=== PATIENT | male | born 1995 | race Caucasian/White ===

== ENCOUNTER 2017-01-31 20:21 | Inpatient (IN) | payer OTHER, BC ==
[~2017-01-31] VITALS: Ht 185.4 cm; Wt 101.6 kg
--- NOTE | ~2017-01-31 | HP ---
PATIENT'S NAME: SEEMA KERNS [facility] AGE: 21 Y [address] ROOM: [place] [address] LOCATION: [facility] ADMIT DATE: 01/31/2017 History & Physical DISCHARGE DATE: FAMILY PHYSICIAN: PHYSICIAN, UNKNOWN ATTENDING PHYSICIAN: Odilon Merlos DATE OF SERVICE: CHIEF COMPLAINT: Grade 3 splenic laceration and left rib fractures following a fall. HISTORY OF PRESENT ILLNESS: Mr. Kerns is a 21-year-old male, who fell Friday morning about 10 feet. He had been on a trailer and landed on his left posterior chest. He had an immediate onset of some discomfort, but had been getting along okay. This morning, he noticed increasing pain as well as some lightheadedness and generally feeling worse. He went in to be evaluated. He was found to be quite tender in his abdomen. Chest x-ray showed a small left pleural effusion. He had a minimally elevated white count, but a normal hemoglobin. Vital signs looked okay. A CT scan of the abdomen was done, which showed a grade 3 splenic laceration to the hilum. There was just a mild amount of blood in the pelvis. No extravasation of contrast or evidence of active bleeding. On arrival to [facility], the patient is awake and alert. He complains of pain with deep inspiration as well as some generalized abdominal pain. He denies nausea or vomiting. He denies fevers or chills. PAST MEDICAL HISTORY: Really unremarkable. He has no chronic health issues. MEDICATIONS: He takes no medications on a regular basis. ALLERGIES: HE HAS NO KNOWN ALLERGIES. PAST SURGICAL HISTORY: His only previous surgery is myringotomy tubes as a child. SOCIAL HISTORY: The patient is not . He does smoke about a pack per day. FAMILY HISTORY: Noncontributory. REVIEW OF SYSTEMS: PATIENT'S NAME: SEEMA KERNS [facility] AGE: 21 Y [address] ROOM: [address] [address] LOCATION: [facility] ADMIT DATE: 01/31/2017 History & Physical DISCHARGE DATE: FAMILY PHYSICIAN: PHYSICIAN, UNKNOWN ATTENDING PHYSICIAN: Odilon Merlos Documented on the nursing assessment and has been reviewed. PHYSICAL EXAMINATION: GENERAL: The patient is a healthy, well-nourished, young man. He is alert and oriented. His Jyothi Coma Scale is 15. He does not appear to be in any major distress or discomfort. VITAL SIGNS: He is afebrile. Blood pressure 127/83, pulse 94, respirations 12, and saturations are 93% on room air. HEENT: Normocephalic and atraumatic. Pupils are equal. There is no scleral icterus. External ears, nose, and eyelids are unremarkable. There is no obvious facial or skull trauma. No hematomas, bruising, or hematomas of any kind. Oropharynx is clear. NECK: The trachea is midline. There are no masses or adenopathy. Breathing is nonlabored. LUNGS: Clear to auscultation bilaterally, but there is some definite diminishment in the left base. There is no crepitus. There is some tenderness over the left posterior chest wall. HEART: Regular rate and rhythm. ABDOMEN: Soft. It is not visibly distended. He does have bowel sounds. He has some moderate left upper quadrant tenderness and mild diffuse tenderness. There is no bruising to the abdominal wall. PELVIS: Stable. EXTREMITIES: No peripheral edema. No cyanosis or clubbing. No obvious deformities. He moves all 4 extremities well. ASSESSMENT: This is a 21-year-old male, who is 2-1/2 days out from a 10 feet fall, suffering a left rib fracture and a grade 3 splenic laceration. Right now, he seems quite stable, but with his clinical deterioration earlier today, I think it would be best to admit him and monitor his hemoglobins for a couple of days to make sure they are stable. He is far enough out that I think I will go ahead and let him have a diet and move around a little bit. Certainly, if we see decreasing hemoglobin or unstable vital signs, we may have to consider splenectomy. MD LEAH DIAZ/misael /[id number] PATIENT'S NAME: SEEMA KERNS Fel[facility] AGE: 21 Y [address] ROOM: [address] [address] LOCATION: [facility] ADMIT DATE: 01/31/2017 History & Physical DISCHARGE DATE: FAMILY PHYSICIAN: PHYSICIAN, UNKNOWN ATTENDING PHYSICIAN: Odilon Merlos CC: Titi Rajan MD D: [id number] T: [id number] HISTORY & PHYSICAL
--- NOTE | ~2017-01-31 | DS ---
PATIENT'S NAME: SEEMA KERNS [facility] AGE: 21 Y [address] ROOM: [address] [address] LOCATION: [facility] ADMIT DATE: 01/31/2017 Discharge Summary DISCHARGE DATE: 02/03/2017 FAMILY PHYSICIAN: Titi Rajan MD ATTENDING PHYSICIAN: Odilon Merlos DIAGNOSES: 1. A 21-year-old male who fell off a trailer, falling approximately 10 feet. 2. Grade 3 splenic laceration, with laceration primarily involving mid to lower spleen extending to the hilum with no active extravasation. Multiple left rib fractures including 9 and 10. SUMMARY: Seema is a 21-year-old male who fell on January 29, 2017, falling approximately 10 feet off the trailer landing on his left posterior chest. The patient had an immediate onset of some discomfort, but had been getting along okay. On the morning of January 31, he had noticed increasing pain as well as some lightheadedness and generally feeling worse. He presented for evaluation. The patient was found to be quite tender in his abdomen. Chest x- ray showed a small left pleural effusions. His hemoglobin was normal. A CT scan of the abdomen was done, which showed a grade 3 splenic laceration extending to the hilum. There was mild amount of blood in the pelvis. No extravasation of contrast or evidence of active bleeding was seen. The patient was transferred to [facility] where he was evaluated by Dr. Merlos. Please see his history and physical for specifics. The patient was admitted to the Neuro Trauma Unit under the care of Dr. Merlos. Diet was allowed as tolerated. Activity was allowed as tolerated. Incentive spirometer was ordered. Hemoglobins were checked every 12 hours. Hatton and morphine were ordered for pain control. Senokot and milk of magnesia for his bowels. On February 01, the patient required 1 L of oxygen to keep saturations at 95%. Hemoglobin was 15.2. On February 02, the patient continued to have moderate pain but hemoglobin remained stable. His IV was saline locked. On February 03, the patient's vital signs continued to be stable, but again the patient was fairly tender. Hemoglobin remained stable at 15.0 and it was decided the patient was stable for discharge. DISCHARGE INSTRUCTIONS: Included no restrictions on diet. No vigorous activity or activities that could re-injure the spleen. I discussed this with the patient. He will see his local physician in 1 to 2 weeks. He is to see a physician as soon as possible for increased abdominal pain, shortness of breath, or lightheadedness. DISCHARGE MEDICATIONS: Include continuing Senokot 1 tablet p.o. twice daily. Prescription was written for Hatton 5/325 1 to 2 p.o. every 4 hours p.r.n. pain, dispensing 40 with no refills. For specifics on day-to-day care, please refer to the hospital chart. PATIENT'S NAME: SEEMA KERNS [facility] AGE: 21 Y [address] ROOM: [place] [address] LOCATION: [facility] ADMIT DATE: 01/31/2017 Discharge Summary DISCHARGE DATE: 02/03/2017 FAMILY PHYSICIAN: Titi Rajan MD ATTENDING PHYSICIAN: Odilon Merlos JOSE EVERETT PA-C FOR MD RANDY DIAZK/misael /[id number] d: 02/05/17 1253 t: 02/14/17 0902, DISCHARGE SUMMARY
[2017-02-01 08:23] LABS: HEMOGLOBIN 15.2 g/dL (12.0-17.0)
[2017-02-01 21:39] LABS: HEMATOCRIT 40.8 % (37.0-53.0); HEMOGLOBIN 14.4 g/dL (12.0-17.0)
[2017-02-02 08:08] LABS: HEMATOCRIT 45.3 % (37.0-53.0); HEMOGLOBIN 15.4 g/dL (12.0-17.0)
[2017-02-02 20:44] LABS: HEMATOCRIT 42.5 % (37.0-53.0)
[2017-02-03 08:21] LABS: HEMATOCRIT 42.8 % (37.0-53.0)
[2017-02-03] MEDS ORDERED: SENOKOT8.6 MG PO (10:37)
[2017-02-03] MEDS ORDERED: NORCO 5-325 TA1 EACH PO (10:38)
== END 2017-02-03 11:32 | disposition disaster alternative care site (69) | DRG 815 ==
LOC: PREINTOOBSV 20:24 → GNTU 21:45
PROVIDERS: ADMIT Surgery
DX: S36.039A Unspecified laceration of spleen, initial encounter (principal); S22.42XA Multiple fractures of ribs, left side, initial encounter for closed fracture; W17.89XA Other fall from one level to another, initial encounter
CPT/HCPCS: J7030